=== PATIENT | female | born 1995 | race Caucasian/White ===

== ENCOUNTER 2019-07-08 09:50 | Inpatient (IN) | payer BC ==
[2019-07-08 11:18] VITALS: BMI 28.8
[2019-07-08] MEDS ORDERED: DINOPROSTONE 10 MG VAGINAL SUPPOSITORY VG ONE (12:00)
[2019-07-08 12:01] LABS: BASO % 0.3 % (0-2.0); HEMATOCRIT 39.2 % (32.4-45.2); HEMOGLOBIN 12.9 GM/dL (10.7-15.3); LYMPH % 17.8 % (8-40); MCH 31.8 pg (25.7-33.7); MEAN CELL VOLUME 96.2 fl (80-96); MONO % 7.8 % (3.8-10.2); NEUT % 73.1 % (42.8-82.8); PLATELET COUNT 205 K/MM3 (134-434); RBC 4.07 M/mm3 (3.60-5.2); RDW 14.1 % (11.6-15.6); WHITE BLOOD COUNT 11.3 K/mm3 (4.0-10.0)
[2019-07-08 12:22] LABS: BLOOD UREA NITROGEN 9.7 mg/dL (7-18); CALCIUM 8.8 mg/dL (8.5-10.1); CREATININE 0.6 mg/dL (0.55-1.3); POTASSIUM 3.8 mmol/L (3.5-5.1)
[2019-07-08 12:29] LABS: INR 0.94 (0.83-1.09); PROTHROMBIN TIME (PATIENT) 11.1 SEC (9.7-13.0)
[2019-07-08 12:32] LABS: ACTIVATED PTT 29.7 SECONDS (25.2-36.5)
--- NOTE | 2019-07-08 13:48 | HP ---
Past Medical History - Admission Chief Complaint: Post dates History of Present Illness: 24 yo @ 40 weeks gestation, EDC 07/08/19, admitted for induction of labor. Upon admission she was 2cm dilated. History Source: Patient Limitations to Obtaining History: No Limitations - Past Medical History ...: 2 ...Para: 1 ...Term: 1 ...LMP: 08/01/18 ... Weeks Gestation by Dates: 40.0 ...EDC by Dates: 07/08/19 - Past Surgical History Past Surgical History: Yes: None Hx Myomectomy: No Hx Transabdominal Cerclage: No - Smoking History Smoking history: Never smoked Have you smoked in the past 12 months: No - Alcohol/Substance Use Hx Alcohol Use: No History of Substance Use: reports: None - Social History Usual Living Arrangement: Yes: With Child History of Recent Travel: No Home Medications - Allergies Allergies/Adverse Reactions: Allergies Allergy/AdvReac Type Severity Reaction Status Date / Time No Known Allergies Allergy Verified 07/08/19 10:47 - Home Medications Home Medications: Ambulatory Orders Tablet 1 tab PO DAILY 03/07/19 Family Medical History Family History: Unremarkable Review of Systems - Review of Systems Constitutional: reports: No Symptoms Eyes: reports: No Symptoms HENT: reports: No Symptoms Neck: reports: No Symptoms Cardiovascular: reports: No Symptoms Respiratory: reports: No Symptoms Gastrointestinal: reports: No Symptoms Genitourinary: reports: No Symptoms Breasts: reports: No Symptoms Reported Musculoskeletal: reports: No Symptoms Neurological: reports: No Symptoms Psychiatric: reports: No Symptoms Pain Intensity: 2 Physical Exam - Maternity Vital Signs: Vital Signs Temperature 97.8 F 07/08/19 11:00 Pulse Rate 101 H 07/08/19 13:00 Respiratory Rate 20 07/08/19 13:00 Blood Pressure 116/61 07/08/19 13:00 O2 Sat by Pulse Oximetry (%) Constitutional: Yes: Well Nourished Eyes: Yes: Conjunctiva Clear HENT: Yes: Atraumatic Neck: Yes: Supple Cardiovascular: Yes: Regular Rate and Rhythm Lungs: Clear to auscultation - Abdominal Exam/OB Number of Fetuses: Single Presentation: Vertex - Vaginal Exam/OB Vaginal Bleediing: No Dilatation (cm): 2 Effacement (%): 60 Amniotic Membrane Status: Intact Station: -2 - Physical Exam Musculoskeletal: Yes: WNL Extremities: Yes: WNL ...Motor Strength: WNL Psychiatric: Yes: Alert, Oriented - Labs Lab Results: CBC, BMP 07/08/19 10:35 07/08/19 10:35 Problem List - Problems (1) 40 weeks gestation of Code(s): Z3A.40 - 40 WEEKS GESTATION OF Assessment/Plan 40 weeks gestation Admit for cervidil induction Analgesia as needed Anticipate
[2019-07-08] MEDS: DEXTROSE 5%-LACTATED RINGERS 1,000 ML IV SCH (21:00)
[2019-07-08] MEDS ORDERED: BUTORPHANOL TARTRATE 1 MG/ML VIAL IVPB ONE (21:45)
[2019-07-08] MEDS ORDERED: PROMETHAZINE HCL 25 MG/1 ML VIAL IVPB ONE (21:45)
[2019-07-08] MEDS ORDERED: PROMETHAZINE HCL 25 MG/1 ML VIAL ONE (21:46)
[2019-07-08] MEDS ORDERED: BUTORPHANOL TARTRATE 1 MG/ML VIAL ONE ×2 (21:46)
[2019-07-09] MEDS: OXYTOCIN 30 UNITS in 0.9% NS 30 UNIT/500 ML INFUS.BAG IVPB SCH (00:30)
[2019-07-09] MEDS ORDERED: OXYTOCIN 30 UNITS in 0.9% NS 30 UNIT/500 ML INFUS.BAG IVPB ONE (00:35)
[2019-07-09] MEDS ORDERED: ELECTROLYTE-148 SOLN 500 ML IV ONE (00:45)
[2019-07-09] MEDS ORDERED: CITRIC ACID/SODIUM CITRATE 30 ML UNIT-DOSE CUP PO ONE (01:00)
[2019-07-09] MEDS ORDERED: NALOXONE HCL 0.4 MG/ML VIAL IVPUSH PRN (01:07)
[2019-07-09] MEDS ORDERED: LIDO 2%/EPI 1:200000 PRESRVFRE (20 ML SDVIAL) ONE (01:10)
[2019-07-09] MEDS ORDERED: FENTANYL/BUPIVACAINE/NS/PF - PCEA - 50 ML DISP.SYRIN EP ONE (01:15)
[2019-07-09] MEDS: FENTANYL/BUPIVACAINE/NS/PF - PCEA - 50 ML DISP.SYRIN EP SCH (01:25)
[2019-07-09] MEDS ORDERED: LIDOCAINE HCL 1% PRESERVATIVE FREE - 30ML VIAL ONE (03:54)
[2019-07-09] MEDS ORDERED: OXYTOCIN 20 UNITS in 0.9% NS 20 UNIT/1,000 ML INFUS.BAG IV ONE (03:54)
[2019-07-09] MEDS: OXYTOCIN 20 UNITS in 0.9% NS 20 UNIT/1,000 ML INFUS.BAG IV SCH ×2 (04:40→11:30)
[2019-07-09] MEDS ORDERED: BISACODYL 10 MG SUPP.RECT RC PRN (04:56)
[2019-07-09] MEDS ORDERED: METHYLERGONOVINE MALEATE 0.2 MG/1 ML AMP IM PRN (04:56)
[2019-07-09] MEDS ORDERED: BENZOCAINE 28 GM HEMORRHOIDAL OINTMENT TP PRN (04:56)
[2019-07-09] MEDS ORDERED: WITCH HAZEL 50% (TUCKS) 40 PAD/JAR PAD TP PRN (04:56)
[2019-07-09] MEDS ORDERED: BENZOCAINE 20% 57 GM BOTTLE TP PRN (04:56)
--- NOTE | 2019-07-09 05:01 | PN ---
Delivery - Delivery Vaginal Delivery: Spontaneous Type of Anesthesia: Epidural Episiotomy/Laceration: None EBL (cc): 250 Delivery, Single - Feeding Plan Initial Plan: Exclusive throughout hospitalization Remarks - Remarks Remarks: Normal spontaneous vaginal delivery of a live infant boy over intact perineum. Nose / Oropharynx suctioned @ perineum. Cord clamped and cut. Baby handed to nurse Placenta expelled spontaneously intact. Mother in stable condition.
[2019-07-09] MEDS: ACETAMINOPHEN 325 MG TABLET (FP) PO PRN ×3 (07:01→22:21)
[2019-07-09] MEDS: IBUPROFEN 600 MG TABLET (FP) PO PRN ×3 (07:02→22:21)
[2019-07-09] MEDS: PRENATAL VITAMINS W/ FOLIC ACID TABLET (FP) PO SCH (09:25)
[2019-07-09] MEDS: FERROUS SO4 325 MG TABLET (FP) PO SCH ×2 (09:26→22:20)
[2019-07-10] MEDS: ELECTROLYTE-148 SOLN 1,000 ML IV SCH (03:36)
[2019-07-10] MEDS: FENTANYL/BUPIVACAINE/NS/PF - PCEA - 50 ML DISP.SYRIN EP SCH (03:37)
[2019-07-10] MEDS: DEXTROSE 5%-LACTATED RINGERS 1,000 ML IV SCH (03:38)
[2019-07-10] MEDS: OXYTOCIN 30 UNITS in 0.9% NS 30 UNIT/500 ML INFUS.BAG IVPB SCH (03:38)
[2019-07-10 07:41] LABS: BASO % 0.5 % (0-2.0); EOS % 1.8 % (0-4.5); HEMATOCRIT 33.8 % (32.4-45.2); HEMOGLOBIN 11.4 GM/dL (10.7-15.3); LYMPH % 26.6 % (8-40); MCH 32.6 pg (25.7-33.7); MCHC 33.8 g/dl (32.0-36.0); MEAN CELL VOLUME 96.4 fl (80-96); MEAN PLT VOLUME 9.1 fl (7.5-11.1); NEUT % 61.1 % (42.8-82.8); PLATELET COUNT 193 K/MM3 (134-434); RDW 14.2 % (11.6-15.6)
[2019-07-10] MEDS ORDERED: FLU VACC QS2019-20(6MOS UP)/PF 60 MCG/0.5 ML SYRINGE IM ONE (08:45)
--- NOTE | 2019-07-10 09:27 | PN ---
Post Progress Note - Subjective Subjective: Pt seen/evaluated and doing well. No complaints. Bleeding minimal. Tolerating diet, OOB, voiding, passing flatus. Type of Delivery: Vital Signs: Vital Signs Temperature 98.2 F 07/09/19 21:34 Pulse Rate 70 07/09/19 21:34 Respiratory Rate 20 07/09/19 21:34 Blood Pressure 118/70 07/09/19 21:34 O2 Sat by Pulse Oximetry (%) 98 07/09/19 04:30 Uterus: Yes: Fundus Firm Incision: Yes: Dressing dry and intact Abdomen/GI: Yes: Abdomen soft, Tolerating PO Lochia: Yes: Rubra Lochia, amount: Small Extremities: Yes: Calves non-tender Perineum: Yes: Intact Activity: Ambulating - Labs Labs: CBC WBC 12.0 K/mm3 (4.0-10.0) H 07/10/19 06:37 RBC 3.50 M/mm3 (3.60-5.2) L 07/10/19 06:37 Hgb 11.4 GM/dL (10.7-15.3) 07/10/19 06:37 Hct 33.8 % (32.4-45.2) 07/10/19 06:37 MCV 96.4 fl (80-96) H 07/10/19 06:37 MCH 32.6 pg (25.7-33.7) 07/10/19 06:37 MCHC 33.8 g/dl (32.0-36.0) 07/10/19 06:37 RDW 14.2 % (11.6-15.6) 07/10/19 06:37 Plt Count 193 K/MM3 (134-434) 07/10/19 06:37 MPV 9.1 fl (7.5-11.1) 07/10/19 06:37 Absolute Neuts (auto) 7.3 K/mm3 (1.5-8.0) 07/10/19 06:37 Neutrophils % 61.1 % (42.8-82.8) 07/10/19 06:37 Lymphocytes % 26.6 % (8-40) D 07/10/19 06:37 Monocytes % 10.0 % (3.8-10.2) 07/10/19 06:37 Eosinophils % 1.8 % (0-4.5) 07/10/19 06:37 Basophils % 0.5 % (0-2.0) 07/10/19 06:37 Nucleated RBC % 0 % (0-0) 07/10/19 06:37 Problem List - Problems (1) Normal vaginal delivery Code(s): O80 - ENCOUNTER FOR FULL-TERM UNCOMPLICATED DELIVERY Assessment/Plan OOB regular diet PO pain meds routine care
[2019-07-10] MEDS ORDERED: FLU VACCINE QUAD 60 MCG/0.5 ML (MDV 19-20) IM ONE (10:00)
[2019-07-10] MEDS ORDERED: DIPHTH,PERTUSS(ACELL),TET 0.5 ML DISP.SYRIN IM ONE (10:00)
[2019-07-10] MEDS: PRENATAL VITAMINS W/ FOLIC ACID TABLET (FP) PO SCH (10:56)
[2019-07-10] MEDS: FERROUS SO4 325 MG TABLET (FP) PO SCH ×2 (10:56→21:40)
[2019-07-10] MEDS: ACETAMINOPHEN 325 MG TABLET (FP) PO PRN ×2 (12:01→21:40)
[2019-07-10] MEDS: IBUPROFEN 600 MG TABLET (FP) PO PRN ×2 (12:02→21:40)
[2019-07-10] MEDS ORDERED: SENNOSIDES/DOCUSATE COMBO (SENNA PLUS) TABLET (UD) PO PRN (22:00)
--- NOTE | 2019-07-11 07:24 | DS ---
Physical Exam-MANUFACTURING PROCESS ENGINEER Vital Signs: Vital Signs Temperature 98.3 F 07/10/19 22:00 Pulse Rate 69 07/10/19 22:00 Respiratory Rate 20 07/10/19 22:00 Blood Pressure 129/83 07/10/19 22:00 O2 Sat by Pulse Oximetry (%) 98 07/09/19 04:30 Constitutional: Yes: Well Nourished, No Distress Eyes: Yes: Conjunctiva Clear HENT: Yes: Atraumatic Neck: Yes: Supple, Trachea Midline Cardiovascular: Yes: Regular Rate and Rhythm Respiratory: Yes: CTA Bilaterally Gastrointestinal: Yes: Normal Bowel Sounds, Soft Renal/: Yes: Vaginal Bleeding ....Post : Yes: Uterus firm, Uterus non-tender, Slight lochia rubra Wound/Incision: Yes: Clean/Dry, Well Approximated Neurological: Yes: Alert, Oriented Psychiatric: Yes: Alert, Oriented Labs: CBC, BMP 07/10/19 06:37 07/08/19 10:35 Delivery - Delivery Vaginal Delivery: Spontaneous Type of Anesthesia: Epidural Episiotomy/Laceration: None EBL (cc): 250 Delivery, Single - Stages of Labor Date 1st Stage Initiatied: 07/08/19 Time 1st Stage Initiated: 19:00 Date 2nd Stage Initiated: 07/09/19 Time 2nd Stage Initiated: 04:30 Date of Delivery: 07/09/19 Time of Delivery: 04:37 Time Placenta Delivered: 04:40 - Condition of Infant Goal Umpire/Slasher Operator Present: No Infant Gender: Male Weight: 6 lb 15 oz Position: Right, OA Total Hours ROM (Hrs/Mins): 12HRS - 1 Minute Total Score: 9 5 Minutes Total Score: 9 - Feeding Plan Initial Plan: Exclusive throughout hospitalization Discharge Summary Problems reviewed: Yes Reason For Visit: INDUCTION OF LABOR Current Active Problems 40 weeks gestation of (Acute) Normal vaginal delivery (Acute) Procedures: Principal: Normal Hospital Course: Pt admitted on 07/08/19 in labor. Underwent uncomplicated the next day . Pt with uncomplicated post course and was discharged home on post day 2. Condition: Good - Instructions Diet, Activity, Other Instructions: Physical activity Resume your normal everyday activity as tolerated no heavy lifting or exercise until seen by your surgeon. You may walk unlimited amounts of and climb stairs. You may resume driving the car when you feel safe and comfortable behind the wheel. No sexual activity as instructed for 6 weeks. Diet There are no dietary restrictions. Eat healthy, high-fiber foods. Drink 6 to 8 glasses of liquid each day. This will assist in keeping your bowels regular. Pain management You may take Tylenol or Ibuprofen (for example, Motrin, Advil etc.) as needed for pain. Call MD for any of the following: Severe pain not relieved by medication Fever of 101 or higher Excessive bleeding or drainage on dressing Inability to urinate Referrals: Lucia Trejo MD [Staff Physician] - Disposition: HOME - Home Medications Comprehensive Discharge Medication List: Ambulatory Orders Tablet 1 tab PO DAILY 03/07/19 Ibuprofen [Motrin -] 600 mg PO QID PRN #28 tablet 07/11/19
[2019-07-11] MEDS: FERROUS SO4 325 MG TABLET (FP) PO SCH (10:07)
[2019-07-11] MEDS: PRENATAL VITAMINS W/ FOLIC ACID TABLET (FP) PO SCH (10:07)
[2019-07-11 14:46] VITALS: BP 121/71; PULSE 68; TEMP 98.5
== END 2019-07-11 11:55 | disposition home or self-care (01) | DRG 807 ==
LOC: JLDR 09:50 → J3W 07-09 06:14
PROVIDERS: ADMIT Obstetrics & Gynecology; ATTEND Obstetrics & Gynecology
PROC: 3E0P7VZ Introduction of Hormone into Female Reproductive, Via Natural or Artificial Opening (ICD-10-PCS; principal; 2019-07-09)
PROC: 10E0XZZ Delivery of Products of Conception, External Approach (ICD-10-PCS; 2019-07-09)
DX: O48.0 Post-term pregnancy (principal); Z37.0 Single live birth; Z3A.40 40 weeks gestation of pregnancy
CPT/HCPCS: 36415; 59409; 80048; 85025; 85610; 85730; 86593; 86850; 86900; 86901; 90715